=== PATIENT | male | born 1940 | race Caucasian/White ===

== ENCOUNTER 2017-02-06 10:59 | Emergency (ER) | payer OTHER, MEDICARE ==
[~2017-02-06] VITALS: Ht 170.2 cm; Wt 79.7 kg
[~2017-02-06 10:59] MED LIST: CLARITIN10 M3 PO; COUMADIN1 MG PO; COUMADIN2 MG PO; COUMADIN4 MG PO; CRESTOR10 MG PO; Ecotrin PO; LOPRESSOR25 MG PO; MUCINEX1200 MG PO; NITROSTAT0.4 MG SL; OMEPRAZOLE40 M1 PO; PRILOSEC40 MG PO; TUMS500 MG PO; ZANTAC150 MG PO
[2017-02-06 13:17] VITALS: BP 140/75
== END 2017-02-06 13:17 | disposition home or self-care (01) ==
LOC: EME 10:59
DX: S80.11XA Contusion of right lower leg, initial encounter (principal); X58.XXXA Exposure to other specified factors, initial encounter; Z86.718 Personal history of other venous thrombosis and embolism; Z86.711 Personal history of pulmonary embolism; Z79.01 Long term (current) use of anticoagulants; E78.5 Hyperlipidemia, unspecified; Z87.891 Personal history of nicotine dependence
CPT/HCPCS: 93971; 99281; 99284

== ENCOUNTER 2017-03-07 20:54 | Emergency (ER) | payer OTHER, MEDICARE ==
[~2017-03-07] VITALS: Ht 170.2 cm; Wt 83.9 kg
[2017-03-07 21:36] LABS: EOSINOPHIL COUNT 0.2 K/uL (0-0.3); HEMATOCRIT 39.9 % (38.0-50.0); IMMATURE GRANULOCYTE (%) 0.6 % (0.0-0.7); IMMATURE GRANULOCYTE COUNT 0.1 K/uL; INSTRUMENT ABS NEUTROPHIL CT 5.8 K/uL; LYMPHOCYTE COUNT 1.5 K/uL (1.0-2.8); MCH 31.9 PG (29.0-34.0); MCHC 34.3 G/DL (30.0-36.0); MEAN PLAT.VOLUME 9.7 uM^3 (9.0-12.4); MONOCYTE (%) 9.7 % (3-12); MONOCYTE COUNT 0.8 K/uL (0-0.8); NEUTROPHIL (%) 69.2 % (45-76); NEUTROPHIL COUNT 5.8 K/uL (1.8-6.4); PLATELET COUNT 163 K/uL (156-360); RBC DIS.WIDTH-CV 13.2 % (11.8-14.6); RBC DIS.WIDTH-SD 44.8 % (39-53); RED BLOOD COUNT 4.29 M/uL (4.00-5.50); WHITE BLOOD COUNT 8.4 K/uL (4.1-10.2)
[2017-03-07 21:40] LABS: CHLORIDE 106 mEq/L (99-109); POTASSIUM 4.3 mEq/L (3.7-5.4); SODIUM 137 mEq/L (136-147)
[2017-03-07 21:42] LABS: GLUCOSE 109 mg/dL (70-99)
[2017-03-07 21:44] LABS: ANION GAP 5 MEQ/L (2-14); TOTAL BILIRUBIN 0.4 mg/dL (0.0-1.0)
[2017-03-07 21:46] LABS: ALKALINE PHOSPHATASE 62 IU/L (3-129); GFR ESTIMATE (CALCULATED) 57 mL/min/
[2017-03-07 21:47] LABS: UREA NITROGEN (BUN) 22 mg/dL (9-23)
[2017-03-07 21:48] LABS: DIRECT BILIRUBIN 0.2 mg/dL (0.0-0.3)
[2017-03-07 21:51] LABS: TROP-I INTERPRETATION NEGATIVE; TROPONIN-I < 0.01 ng/mL (0.0-0.30)
[2017-03-07 21:59] LABS: PTT 35.3 SEC (25-37)
[2017-03-07 22:08] LABS: INTER. NORMALIZED RATIO 2.9; PROTHROMBIN TIME 33.6 SEC (10.2-12.9)
[2017-03-07 23:20] VITALS: BP 106/66
== END 2017-03-07 23:45 | disposition home or self-care (01) ==
LOC: EME → EDBD 20:54 → EME 20:54
PROVIDERS: Emergency Medicine
DX: R55 Syncope and collapse (principal); R10.9 Unspecified abdominal pain; Z86.718 Personal history of other venous thrombosis and embolism; Z79.01 Long term (current) use of anticoagulants; E78.5 Hyperlipidemia, unspecified; Z87.891 Personal history of nicotine dependence
CPT/HCPCS: 71020; 80048; 80076; 83880; 84484; 85025; 85610; 85730; 93005; 99281; 99285

== ENCOUNTER 2018-01-02 12:29 | Emergency (ER) | payer OTHER, MEDICARE ==
[~2018-01-02] VITALS: Ht 172.7 cm; Wt 71.1 kg
[2018-01-02 12:51] LABS: HEMOGLOBIN 14.1 G/DL (12.5-16.6); MCH 33.6 PG (29.0-34.0); MCHC 35.3 G/DL (30.0-36.0); MCV 95.2 FL (86-99); PLATELET COUNT 162 K/uL (156-360); RBC DIS.WIDTH-CV 13.1 % (11.8-14.6); RBC DIS.WIDTH-SD 45.8 % (39-53); WHITE BLOOD COUNT 6.7 K/uL (4.1-10.2)
[2018-01-02 12:59] LABS: CHLORIDE 110 mEq/L (99-109); SODIUM 142 mEq/L (136-147)
[2018-01-02 13:01] LABS: GLUCOSE 114 mg/dL (70-99)
[2018-01-02 13:05] LABS: CREATININE 1.1 mg/dL (0.6-1.3); GFR ESTIMATE (CALCULATED) > 59 mL/min/ (58.99-99999)
[2018-01-02 13:06] LABS: UREA NITROGEN (BUN) 18 mg/dL (9-23)
[2018-01-02 13:11] LABS: TROP-I INTERPRETATION NEGATIVE; TROPONIN-I < 0.01 ng/mL (0.0-0.30)
[2018-01-02 15:57] VITALS: BP 133/70
== END 2018-01-02 15:57 | disposition home or self-care (01) ==
LOC: EME 12:29
PROVIDERS: Emergency Medicine
DX: R06.00 Dyspnea, unspecified (principal); E78.5 Hyperlipidemia, unspecified; K21.9 Gastro-esophageal reflux disease without esophagitis; J30.2 Other seasonal allergic rhinitis; Z79.01 Long term (current) use of anticoagulants; Z86.718 Personal history of other venous thrombosis and embolism; Z86.711 Personal history of pulmonary embolism; Z87.891 Personal history of nicotine dependence; Z91.040 Latex allergy status; Z88.1 Allergy status to other antibiotic agents
CPT/HCPCS: 71046; 80048; 84484; 85027; 85379; 93005; 99281; 99285